=== PATIENT | female | born 1950 | race Caucasian/White ===

== ENCOUNTER 2024-04-17 13:25 | Outpatient (CLI) | payer MEDICARE, BC, SELFPAY ==
--- NOTE | 2024-04-17 13:45 | CRLHL7_ITS ---
For Patients: As a result of the Cures Act, medical imaging exams and procedure reports are released immediately into your electronic medical record. You may view this report before your referring provider. If you have questions, please contact your health care provider. DUPLEX ARTERIAL ULTRASOUND RIGHT LOWER EXTREMITY 04/17/2024 INDICATION: Pulsatile sensation in the right inguinal region. COMPARISON: None. TECHNIQUE: The lower extremity arteries were examined per exam specific protocol with ortiz-scale ultrasound, color-flow and Doppler spectral analysis. Peak systolic velocities (PSV), Doppler waveform quality and velocity ratios, if applicable, were documented at sites per exam specific protocol. FINDINGS: RIGHT PSV WAVEFORM FILTROSE CRUSHER 114.5 Triphasic DFA 91.7 Biphasic FA PRX 128.9 Triphasic FA MID 103.9 Triphasic FA DIST 97.8 Biphasic POP A 79.9 Triphasic MARK A 81.0 Triphasic INTERNATIONAL ACCOUNT REPRESENTATIVE 97.2 Triphasic RADHA: 116.6 Triphasic DPA: 88.9 Biphasic IMPRESSION: 1. Multiphasic waveforms throughout the right lower extremity arterial system. No evidence of hemodynamically significant stenosis or occlusions. 2. No evidence of pseudoaneurysm in the right inguinal region. Gino Adhikari M.D. [email or web address] [email or web address] / DW/Dictated by: Gino Adhikari MD @ 04/18/2024 1:04:00 PM (Electronically Signed)
== END 2024-04-17 13:26 | disposition home or self-care (01) ==
LOC: US 13:28
PROVIDERS: PCP Emergency Medicine; Visit Provider Emergency Medicine
DX: R10.30 Lower abdominal pain, unspecified (principal); R09.89 Other specified symptoms and signs involving the circulatory and respiratory systems
CPT/HCPCS: 93926